=== PATIENT | female | born 1990 | race Caucasian/White ===

== ENCOUNTER 2018-01-31 05:08 | Emergency (ER) | payer OTHER ==
[~2018-01-31] VITALS: Ht 198.1 cm; Wt 83.0 kg
[2018-01-31] MEDS ORDERED: LAMICTAL100 MG PO (05:19)
[2018-01-31 06:26] LABS: ABSOLUTE NEUTROPHILS 4.3 thou/uL (1.4-8.2); EOSINOPHILS 4.1 % (0.0-3.0); HEMATOCRIT 40.8 % (37.0-47.0); HEMOGLOBIN 13.7 gm/dL (12.0-15.0); LYMPHOCYTES 34.4 % (24.0-44.0); MCH 28.1 pg (26.0-34.0); MCHC 33.6 g/dL (28.0-37.0); MCV 83.7 fL (80.0-100.0); MONOCYTES 6.8 % (1.0-8.0); PLATELET COUNT 344 thou/uL (150-400); POLYS 53.7 % (36.0-66.0); RBC 4.88 mil/uL (4.20-5.00); RDW 13.6 % (10.5-14.5); WBC 7.9 thou/uL (4.0-11.0)
[2018-01-31 06:32] LABS: CALCIUM 9.3 mg/dL (8.5-10.1); CREATININE 0.9 mg/dL (0.6-1.0); POTASSIUM 4.1 mmol/L (3.5-5.1)
[2018-01-31 06:38] LABS: ALBUMIN 3.9 g/dL (3.4-5.0); TOTAL BILIRUBIN 0.6 mg/dL (<0.1-1.0)
[2018-01-31] MEDS ORDERED: MOBIC15 MG PO (07:11)
[2018-01-31 07:58] VITALS: BP 123/85
== END 2018-01-31 08:02 | disposition home or self-care (01) ==
LOC: ER 05:08
PROVIDERS: Emergency Medicine
DX: N64.4 Mastodynia (principal); Z88.8 Allergy status to other drugs, medicaments and biological substances

== ENCOUNTER 2018-06-23 15:45 | Emergency (ER) | payer OTHER ==
[~2018-06-23] VITALS: Ht 152.4 cm; Wt 78.5 kg
[~2018-06-23 15:45] MED LIST: LAMICTAL100 MG PO; MOBIC15 MG PO
[2018-06-23 16:51] VITALS: BP 149/93
[2018-06-23] MEDS ORDERED: NAPROSYN500 MG PO (16:55)
[2018-06-23] MEDS ORDERED: PHENERGAN 25 MG25 M1 PO (16:55)
== END 2018-06-23 17:08 | disposition home or self-care (01) ==
LOC: ER 15:45
DX: S00.93XA Contusion of unspecified part of head, initial encounter (principal); F07.81 Postconcussional syndrome; Z88.8 Allergy status to other drugs, medicaments and biological substances; W22.8XXA Striking against or struck by other objects, initial encounter; Y93.89 Activity, other specified; Y92.89 Other specified places as the place of occurrence of the external cause; Y99.8 Other external cause status